=== PATIENT | male | born 1940 | race Caucasian/White ===

== ENCOUNTER 2016-09-10 13:21 | Emergency (ER) | payer MEDICARE, OTHER ==
[2016-09-10 13:32] VITALS: BP 191/69
[2016-09-10] MEDS ORDERED: Diphtheria,Pertussis(Acell),Tetanus Vaccine 0.5 ML SDV IM ONE (14:52)
--- NOTE | 2016-09-10 15:10 | EDM.PDOC ---
ED HPI GENERAL MEDICAL PROBLEM - General Chief Complaint: Upper Extremity Injury/Pain Stated Complaint: CRUSHED R PINKY Time Seen by Provider: 09/10/16 14:38 Source of Information: Reports: Patient, Family (), RN Notes Reviewed History Limitations: Reports: No Limitations - History of Present Illness INITIAL COMMENTS - FREE TEXT/NARRATIVE: The patient states that the tip of his right fifth finger was pinched between a deer box and frame yoke of a internal wholesaler around 12:45, [place], as he was attempting to dismantle it. The patient presents with a jagged laceration and partial indentation to the distal aspect of his right fifth finger. The agitation likely spares the nailbed, but is very close, on the ulnar aspect. The patient states that he had previously suffered a stroke causing decreased sensation to his right fingers, and the is therefore not in much pain. The patient's last tetanus vaccination was likely about 10 years ago. The patient's PCP is Dr. Camarillo. Right 5-Little finger Pain Score (Numeric/FACES): 8 - Related Data Allergies Allergy/AdvReac Type Severity Reaction Status Date / Time silver sulfadiazine Allergy Hives Verified 12/19/14 12:56 [From Adia] Home Meds: Home Meds Acetaminophen/HYDROcodone [[place]oup 325-5 MG] 1 tab PO Q6H PRN #15 tablet 12/19/14 [Rx] Albuterol Sulfate [Proair Respiclick] 90 mcg IH DAILY PRN 12/19/14 [History] Aspirin [Halfprin] 81 mg PO DAILY 12/19/14 [History] Clopidogrel [Plavix] 75 mg PO DAILY 12/19/14 [History] Cyclobenzaprine [Flexeril] 10 mg PO BEDTIME PRN #10 tablet 12/19/14 [Rx] Fluticasone/Salmeterol [Advair 100-50 Diskus] 1 puff INH BID 12/19/14 [History] Metoprolol Succinate [Toprol XL 100mg] 100 mg PO BID 12/19/14 [History] Multivitamin [Multi-Day Vitamins] 1 each PO DAILY 12/19/14 [History] Naproxen Sodium [Aleve] 220 mg PO BID 12/19/14 [History] Omeprazole 20 mg PO DAILY 12/19/14 [History] Simvastatin [Zocor] 20 mg PO BEDTIME 12/19/14 [History] Tamsulosin HCl 0.4 mg PO DAILY 12/19/14 [History] Past Medical History HEENT History: Reports: Cataract Other HEENT History: Wears glasses Cardiovascular History: Reports: Aneurysm (AAA), High Cholesterol, Hypertension Respiratory History: Reports: COPD Gastrointestinal History: Reports: GERD Musculoskeletal History: Reports: Arthritis Neurological History: Reports: CVA Oncologic (Cancer) History: Reports: Prostate, Other (See Below) (Bile duct, Leiomyosarcoma of the left thigh) - Past Surgical History HEENT Surgical History: Reports: Cataract Surgery Cardiovascular Surgical History: Reports: AAA repair (endograft) GI Surgical History: Reports: Cholecystectomy, Other (See Below) (Interval transhepatic right poral vein emboliztion 2009) Male Surgical History: Reports: Other (See Below) (Prostate seeding) Neurological Surgical History: Reports: Laminectomy (lumbar) Musculoskeletal Surgical History: Reports: Other (See Below) (Four corner fusion left wrist 2007.) Oncologic Surgical History: Reports: Other (See Below) (Removal of left thigh leiomyosarcoma muscle) Social & Family History - Family History Family Medical History: Noncontributory - Tobacco Use Smoking Status *Q: Former Smoker Years of Tobacco use: 30 Packs/Tins Daily: 1 Month Tobacco Last Used: Quit 1989 Second Hand Smoke Exposure: No - Alcohol Use Alcohol Use History: Yes Alcohol Use Frequency: Socially - Recreational Drug Use Recreational Drug Use: No - Living Situation & Occupation Living situation: Reports: , with Spouse Occupation: Retired Review of Systems - Review of Systems Review Of Systems: See Below Constitutional: Reports: No Symptoms Eyes: Reports: No Symptoms Ears: Reports: No Symptoms Nose: Reports: No Symptoms Mouth/Throat: Reports: No Symptoms Respiratory: Reports: No Symptoms Cardiovascular: Reports: No Symptoms GI/Abdominal: Reports: No Symptoms Genitourinary: Reports: No Symptoms Musculoskeletal: Reports: No Symptoms Skin: Reports: No Symptoms Neurological: Reports: No Symptoms Psychiatric: Reports: No Symptoms ED EXAM, GENERAL - Physical Exam Exam: See Below Exam Limited By: No Limitations General Appearance: Alert, WD/WN, No Apparent Distress Extremities: Other (Jagged laceration to the tip of the patient's right fifth finger, extending nearly to the nailbed, particularly on the ulnar aspect. The wound is bleeding. He reports decreased sensation to the finger, stemming from a previous stroke.) Course - Vital Signs Last Recorded V/S: Last Vital Signs Temp 35.9 C 09/10/16 13:26 Pulse 95 09/10/16 13:26 Resp 16 09/10/16 13:26 BP 191/69 H 09/10/16 13:26 Pulse Ox 95 09/10/16 13:26 - Orders/Labs/Meds Orders: Active Orders 24 hr Category Date Time Status Vaccines to be Administered [RC] PER UNIT ROUTINE Care 09/10/16 14:52 Active Meds: Medications Discontinued Medications Generic Name Dose Route Start Last Admin Trade Name Freq PRN Reason Stop Dose Admin Diphtheria/Tetanus/Acell Pertussis 0.5 ml 09/10/16 14:52 09/10/16 15:02 Adacel IM 09/10/16 14:53 0.5 ml .ONCE ONE Administration Cefazolin Sodium/Dextrose 1 gm 50 mls @ 100 mls/hr 09/10/16 15:18 09/10/16 15 :32 / Premix IV 09/10/16 15:47 100 mls/hr ONETIME ONE Administration - Re-Assessments/Exams Free Text/Narrative Re-Assessment/Exam: 09/10/16 15:09 4 view radiographs of the right fifth finger appears to demonstrate amputation of the distal aspect of the distal phalanx, along with some comminution of the exposed end. No joint involvement. Formal read per the Radiologist pending. 09/10/16 15:[address] Kwon at 15:12. The patient will need to go to the operating room, but it can be done tomorrow. He requests that we give the patient a dose of Ancef now, then Keflex through tomorrow. The patient is to show up at the clinic at 08:00 tomorrow. 09/10/16 15:25 The plan was explained to the patient and his . They are agreeable. I offered to prescribe some pain medication, but the patient states that he would prefer to just take Aleve. 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 X-rays show that the bone is involved. You will require surgical repair of your finger. Go to Dr. Kwon's clinic at 08:00 tomorrow morning, 09/11/2016. We recommend that you skip breakfast tomorrow. You have been prescribed the antibiotic Keflex. Take one tablet every 6 hours, starting tonight, as prescribed. Take [id number] Aleve as needed. If any other problems, please do not hesitate to return to the ER. - My Orders Last 24 Hours: My Active Orders 09/10/16 14:52 Vaccines to be Administered [RC] PER UNIT ROUTINE - Assessment/Plan Last 24 Hours: My Active Orders 09/10/16 14:52 Vaccines to be Administered [RC] PER UNIT ROUTINE
[2016-09-10] MEDS ORDERED: ceFAZolin 1 GM in Premix Bag 1 BAG IV ONE (15:18)
--- NOTE | 2016-09-10 15:55 | CR ---
Right fifth finger: 3 views of the right fifth finger were obtained. Fracture is identified within the distal phalanx. Soft tissue and bony amputation is also seen within the distal right fifth finger. Mild degenerative change is noted within the PIP joint. No additional abnormality is seen. Impression: 1. Fracture within the distal phalanx of the fifth digit. 2. Small area of soft tissue and bony amputation is seen within the distal right fifth finger. 3. Other incidental finding. Diagnostic code #3
== END 2016-09-10 16:09 | disposition home or self-care (01) ==
LOC: JD.ED 13:21
DX: S68.626A Partial traumatic transphalangeal amputation of right little finger, initial encounter (principal); E78.00 Pure hypercholesterolemia, unspecified; I10 Essential (primary) hypertension; J44.9 Chronic obstructive pulmonary disease, unspecified; K21.9 Gastro-esophageal reflux disease without esophagitis; Z86.73 Personal history of transient ischemic attack (TIA), and cerebral infarction without residual deficits; Z88.8 Allergy status to other drugs, medicaments and biological substances; Z79.899 Other long term (current) drug therapy; Z79.82 Long term (current) use of aspirin; Z87.891 Personal history of nicotine dependence; W23.1XXA Caught, crushed, jammed, or pinched between stationary objects, initial encounter
CPT/HCPCS: 73140; 90471; 90715; 96365; 99284; J0690

== ENCOUNTER 2016-09-11 08:18 | Day surgery (SDC) | payer MEDICARE, OTHER ==
[2016-09-11] MEDS ORDERED: Lidocaine 1% 50 ML MDV ONE (09:52)
[2016-09-11] MEDS ORDERED: Iodine/Sodium Iodide 2% Tincture 30 ML Bottle ONE (09:52)
[2016-09-11] MEDS ORDERED: Bupivacaine 0.25% 30 ML SDV ONE (09:52)
[2016-09-11 12:05] VITALS: BP 134/72
--- NOTE | 2016-09-20 22:17 | PCM.OPNOTE ---
- General Post-Op/Procedure Note Date of Surgery/Procedure: 09/11/16 Operative Procedure(s): irrigation and debridement 3 square centimeters of right small finger open crush injury Pre Op Diagnosis: crush injury to right small finger with nail bed injury Post-Op Diagnosis: Same Anesthesia Technique: Local Primary Surgeon: Dejuan Kwon Scaffolder: Brendan Mares EBL in mLs: 10 Complications: None Condition: Good
--- NOTE | 2016-09-20 22:40 | OR ---
DATE OF OPERATION: 09/11/2016 SURGEON: Dejuan Kwon MD OPERATION PERFORMED: Irrigation and debridement, 3 square cm right small finger, open crush injury. PREOPERATIVE DIAGNOSIS: Crush injury to right small finger with nail bed injury. POSTOPERATIVE DIAGNOSIS: Crush injury to right small finger with nail bed injury. ANESTHESIA: Local. ANESTHESIA PROVIDER: None. BUTCHER: Heaven Mares, PGY-3. ESTIMATED BLOOD LOSS: 10 mL. COMPLICATIONS: None. CONDITION: Stable. DESCRIPTION OF PROCEDURE: The patient was identified in the preop holding area, proper site was marked and identified by the surgeon. The patient was taken back to the operating theater where the patient underwent a digital block to the right small finger. Right hand was then sterilely prepped and draped in the usual sterile fashion. OR time-out was performed. The patient received 2 g IV Ancef. At this time, 6 L of normal saline was irrigated and debrided through the previous wound. At this time, I decided that we could save the patient's finger mostly. We did debride devitalized tissue roughly 3 square cm and I did rongeur back bone as well to get the closure over the top of the distal phalanx as well as to the edge of the nail bed. The patient was noted to have roughly half the nail bed missing from the distal aspect. At this time, 4-0 nylon simple suture was used for closure of the laceration as well as to bring the skin over the top of the distal phalanx to the edge of the nail bed. It was found to have adequate coverage at this time and sterile soft dressing was applied. The patient tolerated the procedure well and was sent to PACU in stable condition. MMODAL /[id number]
== END 2016-09-11 12:00 | disposition home or self-care (01) ==
LOC: JD.SDS 08:18
PROVIDERS: ATTEND Orthopaedic Surgery
DX: S61.306A Unspecified open wound of right little finger with damage to nail, initial encounter (principal); S67.196A Crushing injury of right little finger, initial encounter; I10 Essential (primary) hypertension; E78.00 Pure hypercholesterolemia, unspecified; J44.9 Chronic obstructive pulmonary disease, unspecified; I71.4 Abdominal aortic aneurysm, without rupture; K21.9 Gastro-esophageal reflux disease without esophagitis; W23.0XXA Caught, crushed, jammed, or pinched between moving objects, initial encounter; Z88.2 Allergy status to sulfonamides; Z79.82 Long term (current) use of aspirin; Z79.899 Other long term (current) drug therapy; Z90.49 Acquired absence of other specified parts of digestive tract; Z98.890 Other specified postprocedural states; Z87.891 Personal history of nicotine dependence
CPT/HCPCS: A9270-GY; J3490

== ENCOUNTER 2018-08-09 12:13 | Emergency (ER) | payer MEDICARE, OTHER ==
[2018-08-09 12:26] VITALS: BP 160/62
[2018-08-09] MEDS ORDERED: Orphenadrine 100 MG Tab.ER PO ONE (12:46)
--- NOTE | 2018-08-09 12:56 | EDM.PDOC ---
ED HPI GENERAL MEDICAL PROBLEM - General Chief Complaint: Back Pain or Injury Stated Complaint: BACK PAIN Time Seen by Provider: 08/09/18 12:18 Source of Information: Reports: Patient, RN Notes Reviewed History Limitations: Reports: No Limitations - History of Present Illness INITIAL COMMENTS - FREE TEXT/NARRATIVE: Patient is an 78-year-old male who presents to the ED for the evaluation of back pain after an injury in his garage. The patient states that he was working on his lawnmower, and was pulling on a piece of plastic on the plastic gave way and he fell onto his right side of his back. He denies hitting his head or any loss of consciousness at this time. He states that he went from a standing to lying position on the cement floor. The patient states that the area between his right shoulder blade and right hip are giving him the most pain. He does note some spasms, and the pain is a 10 out of 10 when it is present. He notes that most of his pain is in his inferior posterior ribs. There is no bruising noted. The patient did try to go see his chiropractor, however after initial evaluation the chiropractor felt he needed to come to the ER for imaging. The patient states that he normally takes Aleve with his morning medications, and he did so prior to his injury. He thinks that this injury was roughly at 8:30 AM this morning. He further notes that he does have chronic back pain issues, but this is not bothersome at this time. He was able to get up directly after the accident and move around appropriately. Right Shoulder Pain Score (Numeric/FACES): 6 Right Hip Pain Score (Numeric/FACES): 6 - Related Data Allergies Allergy/AdvReac Type Severity Reaction Status Date / Time silver sulfadiazine Allergy Hives Verified 12/19/14 12:56 [From Silvadene] Home Meds: Home Meds Acetaminophen/HYDROcodone [Gaylord 325-5 MG] 1 tab PO Q6H PRN #15 tablet 12/19/14 [Rx] Albuterol Sulfate [Proair Respiclick] 90 mcg IH DAILY PRN 12/19/14 [History] Aspirin [Halfprin] 81 mg PO DAILY 12/19/14 [History] Clopidogrel [Plavix] 75 mg PO DAILY 12/19/14 [History] Cyclobenzaprine [Flexeril] 10 mg PO BEDTIME PRN #10 tablet 12/19/14 [Rx] Fluticasone/Salmeterol [Advair 100-50] 1 puff INH BID 12/19/14 [History] Metoprolol Succinate [Toprol XL 100mg] 100 mg PO BID 12/19/14 [History] Multivitamin [Multi-Day Vitamins] 1 each PO DAILY 12/19/14 [History] Naproxen Sodium [Aleve] 220 mg PO BID 12/19/14 [History] Omeprazole 20 mg PO DAILY 12/19/14 [History] Simvastatin [Zocor] 20 mg PO BEDTIME 12/19/14 [History] Tamsulosin HCl 0.4 mg PO DAILY 12/19/14 [History] cephALEXin [Cephalexin] 500 mg PO QID 09/11/16 [History] Past Medical History HEENT History: Reports: Cataract Other HEENT History: Wears glasses Cardiovascular History: Reports: Aneurysm (AAA), High Cholesterol, Hypertension Other Cardiovascular History: angiogram Respiratory History: Reports: COPD Gastrointestinal History: Reports: GERD Other Gastrointestinal History: right hepatectomy Musculoskeletal History: Reports: Arthritis Other Musculoskeletal History: left inner thigh muscle removal Neurological History: Reports: CVA Oncologic (Cancer) History: Reports: Prostate, Other (See Below) Other Oncologic History: prostate cancer, bile duct cancer, muscle sarcoma - Past Surgical History HEENT Surgical History: Reports: Cataract Surgery Cardiovascular Surgical History: Reports: AAA Repair GI Surgical History: Reports: Cholecystectomy, Other (See Below) Male Surgical History: Reports: Other (See Below) Neurological Surgical History: Reports: Laminectomy Musculoskeletal Surgical History: Reports: Other (See Below) Oncologic Surgical History: Reports: Other (See Below) Social & Family History - Family History Family Medical History: Noncontributory - Tobacco Use Smoking Status *Q: Former Smoker Used Tobacco, but Quit: Yes Month/Year Tobacco Last Used: 1989 - Caffeine Use Caffeine Use: Reports: Coffee, Soda - Recreational Drug Use Recreational Drug Use: No - Living Situation & Occupation Living situation: Reports: , with Spouse Occupation: Retired ED ROS GENERAL - Review of Systems Review Of Systems: See Below Constitutional: Reports: No Symptoms HEENT: Reports: No Symptoms Respiratory: Reports: No Symptoms Cardiovascular: Reports: No Symptoms Endocrine: Reports: No Symptoms GI/Abdominal: Reports: No Symptoms : Reports: No Symptoms Musculoskeletal: Reports: Back Pain (inferior posterior R sided rib pain, muscle spasms noted to area) Skin: Reports: No Symptoms Neurological: Reports: No Symptoms Psychiatric: Reports: No Symptoms Hematologic/Lymphatic: Reports: No Symptoms ED EXAM, UPPER BACK/NECK PAIN - Physical Exam Exam: See Below Exam Limited By: No Limitations General Appearance: Alert, WD/WN, No Apparent Distress Eye Exam: Bilateral Eye: EOMI, Normal Inspection, PERRL Ears Exam: Normal External Exam, Normal Canal, Hearing Grossly Normal, Normal TMs Nose Exam: Normal Inspection Throat/Mouth Exam: Normal Inspection, Normal Lips, Normal Teeth, Normal Gums, Normal Oropharynx, Normal Voice, No Airway Compromise Head Exam: Atraumatic, Normocephalic Neck Exam: Non-Tender, Full Range of Motion, Normal Alignment, Normal Inspection Nexus Criteria: No: Posterior, Midline Cervical Tenderness, Evidence of Intoxication, Altered Level of Consciousness, Focal Neurological Deficit, Painful Distraction Injuries Cardiovascular/Respiratory: Regular Rate, Rhythm, No M/R/G, Normal Peripheral Pulses, Normal Breath Sounds, No Respiratory Distress GI/Abdominal: Normal Bowel Sounds, Soft, Non-Tender Back Exam: Normal Inspection, Muscle Spasm (R sided, inferior posterior rib pain ) Extremities: Normal Inspection, Normal Range of Motion, Non-Tender, Normal Capillary Refill Neurologic: No Motor/Sensory Deficits, Alert, Normal Mood/Affect, Oriented x 3 Psychiatric: Normal Affect, Normal Mood Skin Exam: Normal Color, Warm/Dry Course - Vital Signs Last Recorded V/S: Last Vital Signs Temp 98.0 F 08/09/18 12:25 Pulse 66 08/09/18 12:25 Resp 20 08/09/18 12:25 BP 160/62 H 08/09/18 12:25 Pulse Ox 99 08/09/18 12:25 - Orders/Labs/Meds Orders: Active Orders 24 hr Category Date Time Status Ribs 3V w Chest Bi [CR] Stat Exams 08/09/18 12:44 Ordered Meds: Medications Discontinued Medications Generic Name Dose Route Start Last Admin Trade Name Freq PRN Reason Stop Dose Admin Orphenadrine Citrate 100 mg 08/09/18 12:46 08/09/18 13:18 Norflex PO 08/09/18 12:47 100 mg BEDTIME ONE Administration - Re-Assessments/Exams Free Text/Narrative Re-Assessment/Exam: 08/09/18 12:55 Patient presents to the ED for the evaluation of rib pain s/p injury. I have ordered 100mg Norflex and Rib x-rays to further evaluate. 08/09/18 14:03 Rib x-rays were obtained, and reviewed by Dr. Shin and myself, there is no sign of an acute right-sided rib fracture at this time. The patient does have some old rib fractures on the left that are healed from a previous injury. The patient was reassessed at bedside and states that he does feel better after the muscle relaxer, the pain is not so intense. I will provide the gentleman with a few tablets of Norflex with general recommendations for follow-up in roughly 1 week to 10 days' time if not feeling much better. Departure - Departure Time of Disposition: 14:04 Disposition: Home, Self-Care 01 Condition: Fair Clinical Impression: Rib pain on right side - Discharge Information *PRESCRIPTION DRUG MONITORING PROGRAM REVIEWED*: No *COPY OF PRESCRIPTION DRUG MONITORING REPORT IN PATIENT WILLIAM: No Instructions: Chest Wall Pain, [id number] Referrals: Joe Pascual PA-C [Primary Care Provider] - Forms: ED Department Discharge Additional Instructions: You have been evaluated in the ED for your right sided posterior rib pain Your x-ray demonstrated no acute Right sided rib fractures. Please use ice as tolerated to the affected area. You may take Aleve Q12 hrs for pain relief. Please do so until you have a tolerable level of pain with activity. You will likely be sore for the next few days, but should get better after this. Recommend that you follow up with the clinic provider in a week to 10 days' time if your pain is not getting much better. Please return to ED if your symptoms should change or worsen. - My Orders Last 24 Hours: My Active Orders 08/09/18 12:44 Ribs 3V w Chest Bi [CR] Stat - Assessment/Plan Last 24 Hours: My Active Orders 08/09/18 12:44 Ribs 3V w Chest Bi [CR] Stat
--- NOTE | 2018-08-12 08:53 | CR ---
Chest and bilateral ribs: Frontal view of the chest was obtained as well as four additional views showing the right and left ribs. Comparison: Prior chest and right rib exam of 12/19/14. Heart size and mediastinum are normal. Deformity from several old left mid rib fractures are noted. Lungs are clear with no acute parenchymal change. Degenerative endplate spurring is scattered within the spine. Mild scoliosis is also seen within the spine. No acute rib fracture is definitely appreciated. Nondisplaced fracture could be missed. Impression: 1. Several old healed left mid rib fractures. 2. Nothing acute seen on frontal chest x-ray. 3. No acute rib fracture is identified, nondisplaced fracture could be missed. Diagnostic code #2
== END 2018-08-09 14:15 | disposition home or self-care (01) ==
LOC: JD.ED 12:13
DX: R07.81 Pleurodynia (principal); E78.00 Pure hypercholesterolemia, unspecified; I10 Essential (primary) hypertension; J44.9 Chronic obstructive pulmonary disease, unspecified; K21.9 Gastro-esophageal reflux disease without esophagitis; Z87.891 Personal history of nicotine dependence; Z88.8 Allergy status to other drugs, medicaments and biological substances; Z79.82 Long term (current) use of aspirin; Z79.899 Other long term (current) drug therapy; Z79.01 Long term (current) use of anticoagulants
CPT/HCPCS: 71111; 99283; A9270